=== PATIENT | female | born 1940 | race African-American/Black ===

== ENCOUNTER 2017-12-28 19:23 | Inpatient (IN) | payer MEDICARE ==
[~2017-12-28] VITALS: Ht 160 cm; Wt 79.8 kg
[2017-12-28] MEDS ORDERED: NITROGLYCERIN 0.4MG TABLET SL SL PRN (19:45)
[2017-12-28 20:07] LABS: BASOPHILS % 0.7 % (0.0-2.0); EOSINOPHILS % 1.3 % (0.0-5.0); HEMATOCRIT. 37.6 % (36.0-48.0); HEMOGLOBIN. 11.9 g/dL (12.0-16.0); LYMPHOCYTES % 40.3 % (20.0-50.0); MEAN CORPUSCULAR VOLUME 69.7 fL (81.0-99.0); MONOCYTES % 10.7 % (2.0-8.0); PLATELET 171 x1000/uL (130-400); RED CELL DISTRIBUTION WIDTH 16.2 % (11.6-14.6)
[2017-12-28 20:12] LABS: CHLORIDE 108 mEq/L (98-107)
[2017-12-28 20:18] LABS: D-DIMER 0.87 mg/L FEU (<0.50); PARTIAL THROMBOPLASTIN TIME 27.1 sec (23.4-31.0); PROTHROMBIN TIME 10.3 sec (9.1-11.1)
[2017-12-28] MEDS ORDERED: IOHEXOL-350 100 ML BOTTLE ONE (21:30)
[2017-12-28 22:07] LABS: PLATELET ESTIMATE NORMAL
[2017-12-28 23:20] VITALS: BP 143/86
[2017-12-28 23:30] VITALS: BP 143/86
[2017-12-29] MEDS ORDERED: IPRATROPIUM/ALBUTEROL 0.5-3(2.5)MG/3ML NEB INH PRN
[2017-12-29] MEDS ORDERED: ACETAMINOPHEN 325MG TABLET PO PRN
[2017-12-29] MEDS ORDERED: DOCUSATE SODIUM 100MG CAPSULE PO PRN
[2017-12-29] MEDS ORDERED: PANT40TA4 PO (00:43)
[2017-12-29] MEDS ORDERED: BENA40TA9 PO (00:43)
[2017-12-29] MEDS ORDERED: AMLO5TAB88 PO (00:43)
[2017-12-29] MEDS ORDERED: PRAV20TA57 PO (00:43)
[2017-12-29] MEDS ORDERED: XALAO LEFTEYE (00:43)
[2017-12-29] MEDS ORDERED: HYDR200T35 PO (00:43)
[2017-12-29 04:00] VITALS: BP 125/77
[2017-12-29] MEDS: SODIUM CHLORIDE 0.9% INJ 3ML FLUSH IVF SCH ×3 (05:52→20:45)
[2017-12-29 07:33] LABS: BASOPHILS % 0.7 % (0.0-2.0); EOSINOPHILS % 1.2 % (0.0-5.0); HEMATOCRIT. 36.9 % (36.0-48.0); HEMOGLOBIN. 11.8 g/dL (12.0-16.0); LYMPHOCYTES % 44.9 % (20.0-50.0); MEAN CORPUSCULAR HEMOGLOBIN 22.1 pg (28.0-32.0); MEAN CORPUSCULAR VOLUME 68.9 fL (81.0-99.0); MEAN PLATELET VOLUME 8.8 fl (7.4-10.4); MONOCYTES % 11.3 % (2.0-8.0); NEUTROPHILS % 41.9 % (40.0-76.0); PLATELET 170 x1000/uL (130-400); RED BLOOD CELL COUNT 5.35 mill/uL (4.2-5.4); RED CELL DISTRIBUTION WIDTH 15.9 % (11.6-14.6)
[2017-12-29 08:00] VITALS: BP 118/63
[2017-12-29 08:08] LABS: CHLORIDE 108 mEq/L (98-107)
[2017-12-29 08:15] LABS: LDL CHOLESTEROL 63 mg/dL (5-100)
[2017-12-29 08:17] LABS: HDL CHOLESTEROL 68 mg/dL (40-59)
[2017-12-29] MEDS ORDERED: ENOXAPARIN 40MG/0.4ML SYR SUBCUT SCH (09:00)
[2017-12-29] MEDS ORDERED: FAMOTIDINE 20MG TABLET PO SCH (09:00)
[2017-12-29] MEDS ORDERED: ENOXAPARIN 30MG/0.3ML SYR SUBCUT SCH (09:00)
[2017-12-29] MEDS: CARVEDILOL 12.5MG TABLET PO SCH ×2 (09:13→20:43)
[2017-12-29] MEDS: LOSARTAN POTASSIUM 50 MG TABLET PO SCH (09:13)
[2017-12-29] MEDS: FAMOTIDINE 20MG TABLET PO SCH (09:13)
[2017-12-29] MEDS: ASPIRIN 325MG EC TABLET PO SCH (09:13)
[2017-12-29] MEDS: HYDROXYCHLOROQUINE SULFATE 200MG TABLET PO SCH (09:13)
[2017-12-29 10:08] LABS: BG BASE EXCESS -3.2 mmol/L (-2.0-2.0); BG CARBOXYHEMOGLOBIN 0.6 % (0.5-1.5); BG DEOXYHEMOGLOBIN 2.9 % (0.0-5.0); BG FRACTION INSPIRED OXYGEN 21; BG HCO3 ACT 19.4 mmol/L (22.0-26.0); BG METHEMOGLOBIN 0.2 % (0.0-1.5); BG OXYGEN SATURATION 97.1 % (92.0-98.5); BG OXYHEMOGLOBIN 96.3 % (94.0-97.0); BG PH 7.458 (7.350-7.450); BG PO2 87.2 mmHg (75.0-100.0); BG SAMPLE SITE RIGHT BRACHIAL; BG TOTAL HEMOGLOBIN 12.6 g/dL (12.0-18.0); BG VENT MODE ROOM AIR
[2017-12-29 12:00] VITALS: BP 117/54
[2017-12-29] MEDS ORDERED: LIDOCAINE HCL/PF 1% 2ML VIAL ONE (12:58)
[2017-12-29 16:00] VITALS: BP 117/56
[2017-12-29] MEDS ORDERED: REGADENOSON 0.4 MG/5 ML IV ONE (18:30)
[2017-12-29 20:00] VITALS: BP 113/65
[2017-12-29] MEDS ORDERED: HYDROCODONE/ACETAMINOPHEN 5/325MG TABLET PO PRN (20:00)
[2017-12-29] MEDS ORDERED: ATORVASTATIN CALCIUM 40MG TABLET PO SCH (21:00)
[2017-12-30] VITALS: BP 106/49
[2017-12-30] MEDS ORDERED: DEXT 5%/0.45% NACL 1000ML 1,000 ML IV SCH
[2017-12-30 04:00] VITALS: BP 127/52
[2017-12-30 04:34] LABS: CLARITY URINE CLEAR (CLEAR); COLOR URINE YELLOW (YELLOW); KETONES URINE NEGATIVE (NEGATIVE); LEUKOCYTE ESTERASE URINE NEGATIVE (NEGATIVE); NITRITE URINE NEGATIVE (NEGATIVE); OCCULT BLOOD URINE NEGATIVE (NEGATIVE); PH URINE 5.5 (4.5-8.0); PROTEIN URINE NEGATIVE (NEGATIVE); SPECIFIC GRAVITY URINE 1.009 (1.005-1.030); UROBILINOGEN URINE 0.2 E.U./dL (0.2-1.0)
[2017-12-30 04:45] LABS: *COCAINE SCREEN URINE NEGATIVE (NEGATIVE); METHADONE URINE SCREEN NEGATIVE (NEGATIVE); OPIATES URINE SCREEN NEGATIVE (NEGATIVE)
[2017-12-30 04:46] LABS: *AMPHETAMINES SCREEN URINE NEGATIVE (NEGATIVE); *BARBITURATES SCREEN URINE NEGATIVE (NEGATIVE); *BENZODIAZEPINES SCREEN URINE NEGATIVE (NEGATIVE); CANNABINOID URINE SCREEN NEGATIVE (NEGATIVE); PHENCYCLIDINE URINE SCREEN NEGATIVE (NEGATIVE)
[2017-12-30] MEDS: SODIUM CHLORIDE 0.9% INJ 3ML FLUSH IVF SCH ×2 (06:01→12:33)
[2017-12-30 07:23] LABS: BASOPHILS % 0.7 % (0.0-2.0); EOSINOPHILS % 1.8 % (0.0-5.0); LYMPHOCYTES % 51.7 % (20.0-50.0); MEAN PLATELET VOLUME 8.7 fl (7.4-10.4); NEUTROPHILS % 36.8 % (40.0-76.0); PLATELET 173 x1000/uL (130-400); RED BLOOD CELL COUNT 5.43 mill/uL (4.2-5.4); RED CELL DISTRIBUTION WIDTH 16.3 % (11.6-14.6)
[2017-12-30 08:00] VITALS: BP 115/56
[2017-12-30 08:16] LABS: PHOSPHORUS 3.4 mg/dL (2.5-4.9)
[2017-12-30] MEDS: FAMOTIDINE 20MG TABLET PO SCH (09:00)
[2017-12-30] MEDS: HYDROXYCHLOROQUINE SULFATE 200MG TABLET PO SCH (09:00)
[2017-12-30] MEDS: CARVEDILOL 12.5MG TABLET PO SCH (09:00)
[2017-12-30] MEDS: ASPIRIN 325MG EC TABLET PO SCH (09:00)
[2017-12-30] MEDS ORDERED: ENOXAPARIN 40MG/0.4ML SYR SUBCUT SCH (09:00)
[2017-12-30] MEDS: LOSARTAN POTASSIUM 50 MG TABLET PO SCH (09:00)
[2017-12-30] MEDS ORDERED: REGADENOSON 0.4 MG/5 ML IV ONE (11:32)
[2017-12-30 12:00] VITALS: BP 106/57
[2017-12-30 15:53] VITALS: BP 106/57
== END 2017-12-30 16:59 | disposition home or self-care (01) | DRG 313 ==
LOC: ER 19:23 → 8WST 21:15 → ENRESERV 21:27
PROVIDERS: ADMIT Internal Medicine; ATTEND Internal Medicine
DX: R07.89 Other chest pain (principal); I42.9 Cardiomyopathy, unspecified; I10 Essential (primary) hypertension; E86.0 Dehydration; J44.9 Chronic obstructive pulmonary disease, unspecified; M32.9 Systemic lupus erythematosus, unspecified; R00.1 Bradycardia, unspecified; I45.4 Nonspecific intraventricular block; D64.9 Anemia, unspecified; N28.1 Cyst of kidney, acquired; Z79.899 Other long term (current) drug therapy
CPT/HCPCS: 36415; 36600; 71045; 71275; 78452; 80048; 80053; 80061; 80305; 81003; 82375; 82805; 83036; 83735; 83880; 84100; 84443; 84484; 85025; 85379; 85610; 85730; 93005; 93017; 93306; 99285; A9500; J1650; J2785; J3490; Q9967

== ENCOUNTER 2020-04-18 19:19 | Emergency (ER) | payer MEDICARE ==
[~2020-04-18] VITALS: Ht 162.6 cm; Wt 80.0 kg
[~2020-04-18 19:19] MED LIST: AMLO5TAB88 PO; HYDR200T35 PO; PANT40TA4 PO; XALAO LEFTEYE
[2020-04-18] MEDS ORDERED: ACETAMINOPHEN 325MG TABLET PO ONE (19:45)
[2020-04-18 22:11] LABS: BASOPHILS % 1.1 % (0.0-2.0); HEMATOCRIT. 39.9 % (36.0-48.0); HEMOGLOBIN. 12.9 g/dL (12.0-16.0); LYMPHOCYTES % 38.2 % (20.0-50.0); MEAN CORPUSCULAR VOLUME 68.4 fL (81.0-99.0); MONOCYTES % 7.9 % (2.0-8.0); NEUTROPHILS % 52.8 % (40.0-76.0); PLATELET 117 x1000/uL (130-400); RED BLOOD CELL COUNT 5.84 mill/uL (4.2-5.4)
[2020-04-18] MEDS ORDERED: SODIUM CHLORIDE 0.9% 500 ML IV ONE (22:15)
[2020-04-18 22:37] LABS: PLATELET ESTIMATE DECREASED
[2020-04-18 22:38] LABS: CHLORIDE 108 mEq/L (98-107)
[2020-04-18] MEDS ORDERED: ASPIRIN 325MG EC TABLET PO ONE (23:00)
[2020-04-19 03:16] VITALS: BP 116/64
== END 2020-04-19 03:18 | disposition home or self-care (01) ==
LOC: ER 19:19
DX: U07.1 COVID-19 (principal); R79.89 Other specified abnormal findings of blood chemistry; I10 Essential (primary) hypertension
CPT/HCPCS: 36415; 71045; 80053; 83880; 84484; 85025; 93005; 96360; 99285; C9803; J7040; U0003

== ENCOUNTER 2024-10-12 02:40 | Emergency (ER) | payer MEDICARE ==
[~2024-10-12] VITALS: Ht 167.6 cm; Wt 62.0 kg
[~2024-10-12 02:40] MED LIST changes: -PANT40TA4 PO; +PANT40TA51 PO
[2024-10-12 02:46] VITALS: O2SAT 99
[2024-10-12] MEDS: MORPHINE SULFATE 2 MG/ML INJ (NOT FOR IM USE) IV ONE (04:27)
[2024-10-12 04:28] LABS: CHLORIDE 106 mEq/L (98-107); POTASSIUM 4.7 mEq/L (3.5-5.1); SODIUM 138 mEq/L (136-145)
[2024-10-12 04:29] LABS: CARBON DIOXIDE 23 mEq/L (21-32)
[2024-10-12 04:34] LABS: CREATININE 1.6 mg/dL (0.6-1.0); GLUCOSE 90 mg/dL (70-105); UREA NITROGEN BLOOD 26 mg/dL (9-23)
[2024-10-12] MEDS: ACETAMINOPHEN 325MG TABLET PO ONE (04:34)
[2024-10-12 04:36] LABS: TROPONIN I HIGH SENSITIVITY 13 ng/L (3.0-34)
[2024-10-12 04:36] LABS: CLARITY URINE CLEAR (CLEAR); COLOR URINE YELLOW (YELLOW); GLUCOSE URINE NEGATIVE (NEGATIVE); KETONES URINE NEGATIVE (NEGATIVE); LEUKOCYTE ESTERASE URINE 2+ (NEGATIVE); NITRITE URINE NEGATIVE (NEGATIVE); OCCULT BLOOD URINE NEGATIVE (NEGATIVE); PROTEIN URINE NEGATIVE (NEGATIVE); SPECIFIC GRAVITY URINE 1.006 (1.005-1.030); UROBILINOGEN URINE 0.2 E.U./dL (0.2-1.0)
[2024-10-12 04:37] LABS: BASOPHILS % 0.6 % (0.0-2.0); EOSINOPHILS % 1.5 % (0.0-5.0); HEMATOCRIT. 37.6 % (36.0-48.0); HEMOGLOBIN. 11.8 g/dL (12.0-16.0); LYMPHOCYTES % 46.4 % (20.0-50.0); MEAN CORPUSCULAR HEMOGLOBIN 21.7 pg (28.0-32.0); MEAN CORPUSCULAR HGB CONC 31.3 g/dL (31.0-37.0); MEAN CORPUSCULAR VOLUME 69.1 fL (81.0-99.0); MEAN PLATELET VOLUME 8.5 fl (7.4-10.4); NEUTROPHILS % 42.5 % (40.0-76.0); PLATELET 199 x1000/uL (130-400); RED BLOOD CELL COUNT 5.44 mill/uL (4.2-5.4); RED CELL DISTRIBUTION WIDTH 16.7 % (11.6-14.6); WHITE BLOOD COUNT 9.1 x1000/uL (4.5-11.0)
[2024-10-12 04:52] LABS: PROTHROMBIN TIME 10.9 sec (9.6-11.0)
[2024-10-12 05:45] LABS: DIFFERENTIAL COMMENT 1
[2024-10-12 05:46] LABS: ADD RBC MORPHOLOGY YES
[2024-10-12 06:02] LABS: HYPOCHROMASIA 1+; PLATELET ESTIMATE NORMAL
[2024-10-12 06:03] LABS: MICROCYTOSIS 2+
[2024-10-12 06:04] LABS: OVALOCYTES 1+
[2024-10-12 06:52] LABS: BACTERIA URINE TRACE; RBC URINE 0-2 /hpf (0-2); SQUAMOUS EPITHELIAL CELL URINE FEW /lpf (RARE/1+)
[2024-10-12] MEDS: METHOCARBAMOL 750MG TABLET PO SCH (07:20)
[2024-10-12] MEDS: LIDOCAINE 5% PATCH TOP SCH (07:21)
[2024-10-12 07:57] LABS: TROPONIN I HIGH SENSITIVITY 15 ng/L (3.0-34)
[2024-10-12] MEDS ORDERED: LIDO700A30 TP (09:37)
[2024-10-12 09:54] VITALS: BP 142/61; PULSE 68; RESP 12; TEMP 36.7; O2SAT 96
== END 2024-10-12 10:34 | disposition home or self-care (01) ==
LOC: ER 02:52
DX: M25.512 Pain in left shoulder (principal); K21.9 Gastro-esophageal reflux disease without esophagitis; I10 Essential (primary) hypertension; Z79.899 Other long term (current) drug therapy
CPT/HCPCS: 36415; 71045; 73030; 80048; 81003; 83880; 84484; 85025; 93005; 93971; 99285